=== PATIENT | male | born 1960 | race Caucasian/White ===

== ENCOUNTER 2016-09-19 15:59 | Emergency (ER) | payer OTHER ==
[2016-09-19 16:22] VITALS: BP 143/85
== END 2016-09-19 17:18 | disposition left against medical advice (07) ==
LOC: ED 15:59
DX: Z53.21 Procedure and treatment not carried out due to patient leaving prior to being seen by health care provider (principal)

== ENCOUNTER 2016-09-25 01:37 | Emergency (ER) | payer OTHER ==
[2016-09-25 02:27] VITALS: BP 128/81
== END 2016-09-25 02:27 | disposition home or self-care (01) ==
LOC: ED 01:37
DX: L25.9 Unspecified contact dermatitis, unspecified cause (principal); L03.115 Cellulitis of right lower limb; I10 Essential (primary) hypertension

== ENCOUNTER 2016-09-26 01:13 | Emergency (ER) | payer OTHER ==
[2016-09-26 01:57] VITALS: BP 122/83
== END 2016-09-26 01:57 | disposition home or self-care (01) ==
LOC: ED 01:13
DX: I83.013 Varicose veins of right lower extremity with ulcer of ankle (principal); G89.29 Other chronic pain; M25.571 Pain in right ankle and joints of right foot; F17.210 Nicotine dependence, cigarettes, uncomplicated; Z98.890 Other specified postprocedural states

== ENCOUNTER 2016-11-06 15:11 | Emergency (ER) | payer OTHER ==
[~2016-11-06] VITALS: Ht 167.6 cm; Wt 62.4 kg
[2016-11-06 15:17] VITALS: BP 116/84
== END 2016-11-06 17:10 | disposition home or self-care (01) ==
LOC: ED 15:11
DX: G89.29 Other chronic pain (principal); M25.571 Pain in right ankle and joints of right foot; I10 Essential (primary) hypertension

== ENCOUNTER 2017-04-27 20:37 | Emergency (ER) | payer OTHER ==
[~2017-04-27] VITALS: Ht 172.7 cm; Wt 68.5 kg
[2017-04-27 20:58] VITALS: Ht 172.7 cm; Wt 68.5 kg
[2017-04-27 22:47] VITALS: BP 134/80
== END 2017-04-27 22:47 | disposition home or self-care (01) ==
LOC: ED 20:37
DX: L03.115 Cellulitis of right lower limb (principal); I10 Essential (primary) hypertension; G89.29 Other chronic pain; M25.571 Pain in right ankle and joints of right foot

== ENCOUNTER 2017-08-20 18:27 | Emergency (ER) | payer OTHER ==
[~2017-08-20] VITALS: Ht 170.2 cm; Wt 68.0 kg
[2017-08-20 18:32] VITALS: Ht 170.2 cm; Wt 68.0 kg
[2017-08-20 19:27] VITALS: BP 121/68
== END 2017-08-20 19:27 | disposition home or self-care (01) ==
LOC: ED 18:27
DX: L30.8 Other specified dermatitis (principal); L84 Corns and callosities; K02.9 Dental caries, unspecified; I10 Essential (primary) hypertension; F17.210 Nicotine dependence, cigarettes, uncomplicated; G89.29 Other chronic pain
CPT/HCPCS: 99406

== ENCOUNTER 2018-03-01 12:09 | Emergency (ER) | payer OTHER ==
[~2018-03-01] VITALS: Ht 170.2 cm; Wt 61.7 kg
[2018-03-01 12:25] VITALS: Ht 170.2 cm; Wt 61.7 kg
[2018-03-01 13:28] VITALS: BP 140/85
== END 2018-03-01 13:28 | disposition home or self-care (01) ==
LOC: ED 12:09
DX: G56.31 Lesion of radial nerve, right upper limb (principal); I10 Essential (primary) hypertension; G89.29 Other chronic pain; F17.210 Nicotine dependence, cigarettes, uncomplicated; F19.10 Other psychoactive substance abuse, uncomplicated; Z71.6 Tobacco abuse counseling
CPT/HCPCS: 99406

== ENCOUNTER 2018-03-13 11:52 | Emergency (ER) | payer OTHER ==
[2018-03-13 13:46] VITALS: BP 121/77
== END 2018-03-13 13:46 | disposition home or self-care (01) ==
LOC: ED 11:52
DX: M54.12 Radiculopathy, cervical region (principal); L30.9 Dermatitis, unspecified; I10 Essential (primary) hypertension; F17.210 Nicotine dependence, cigarettes, uncomplicated; G89.29 Other chronic pain; Z98.890 Other specified postprocedural states; Z76.0 Encounter for issue of repeat prescription; Z71.6 Tobacco abuse counseling
CPT/HCPCS: 99406

== ENCOUNTER 2018-08-12 21:22 | Emergency (ER) | payer OTHER ==
[~2018-08-12] VITALS: Ht 167.6 cm; Wt 64.9 kg
[2018-08-12 21:57] VITALS: Ht 167.6 cm; Wt 64.9 kg
[2018-08-13 00:40] VITALS: BP 114/74
== END 2018-08-13 00:40 | disposition home or self-care (01) ==
LOC: ED 21:22
DX: L03.115 Cellulitis of right lower limb (principal); B35.4 Tinea corporis; Z98.890 Other specified postprocedural states